=== PATIENT | female | born 1995 | race Caucasian/White ===

== ENCOUNTER 2016-04-07 08:53 | Emergency (ER) | payer OTHER ==
[2016-04-07 09:49] LABS: BASOPHILS 0.4 % (0.0-2.0); EOSINOPHILS 7.1 % (0.0-6.0); EOSINOPHILS# 0.5 X 10^3uL (0.0-0.4); HEMATOCRIT 38.6 % (36.0-48.0); HEMOGLOBIN 13.2 g/dL (12.0-16.0); LYMPHOCYTES 25.6 % (20.0-40.0); LYMPHOCYTES# 1.8 X 10^3uL (0.8-3.8); MEAN CELL VOLUME 85.7 fL (84.0-102.0); MEAN CORPUS. HGB CONCENTRATION 34.1 g/dL (32.0-36.0); MEAN CORPUSCULAR HEMOGLOBIN 29.2 pg (29.0-35.0); MEAN PLATELET VOLUME 8.4 fL (7.4-10.4); MONOCYTES# 0.4 X 10^3uL (0.2-1.0); NEUTROPHILS 60.9 % (54.0-75.0); NEUTROPHILS# 4.4 X 10^3uL (2.6-6.7); PLATELET COUNT 309 X 10^3uL (130-440); RED CELL DISTRIBUTION WIDTH 12.3 % (11.5-14.5); WHITE BLOOD COUNT 7.1 X 10^3uL (3.9-10.7)
[2016-04-07 09:57] LABS: A/G RATIO 1.2; ALKALINE PHOSPHATASE 100 U/L (38-126); ALT 44 U/L (9-52); AST 26 U/L (14-36); BILIRUBIN, TOTAL 0.5 mg/dL (0.2-1.3); BLOOD UREA NITROGEN 11 mg/dL (7-17); CALCIUM 8.8 mg/dL (8.4-10.2); CHLORIDE 107 mmol/L (98-107); CREATININE 0.7 mg/dL (0.5-1.0); EST GLOMERULAR FILTRATION RATE > 60 mL/min; GLUCOSE 122 mg/dL (70-100); LIPASE 114 U/L (23-300); POTASSIUM 3.7 mmol/L (3.5-5.1); SODIUM 141 mmol/L (137-145); TOTAL PROTEIN 7.3 g/dL (6.3-8.2); URIC ACID 4.7 mg/dL (2.5-6.2)
[2016-04-07] MEDS ORDERED: KETOROLAC TROMETHAMINE 30 MG/ML VIAL ONE (09:57)
[2016-04-07] MEDS ORDERED: ONDANSETRON HCL 4 MG/2 ML VIAL ONE (09:57)
[2016-04-07 10:55] LABS: URINE MUCUS NONE SEEN (Up to 25%)
--- NOTE | 2016-04-07 10:59 | ER NURSING DOCUMENTATION ---
Nurse's Notes [facility] Name:Aurora Reagan Age:20 yrs Sex:Female :1995 Arrival Date:04/07/2016 Time:08:53 Bed3 Private MD: Diagnosis:Renal Colic Presentation: 04/07 09:01 Acuity: JOSE 3 cb 09:09 Presenting complaint: Patient states: bilateral upper abdominal pain radiating to back lpr since yesterday. Hx of kidney stones with lithotripsy one year ago. Dark urine. Transition of care: patient was not received from another setting of care. 09:09 Method Of Arrival: Walk In lpr Triage Assessment: 09:12 General: Appears uncomfortable, Behavior is cooperative. Pain: Complains of pain in mid lpr back area, right upper quadrant and left upper quadrant. EENT: Oral mucosa is moist. Neuro: Level of Consciousness is awake, alert, obeys commands, Oriented to person, place, time, event. Cardiovascular: No deficits noted. Respiratory: Airway is patent Respiratory effort is even, unlabored, Respiratory pattern is regular, symmetrical. GI: Reports Pain is 8 out of 10 on a pain scale. : Reports darkurine. Derm: Skin is intact, is healthy with good turgor, Skin is pink, warm & dry. Musculoskeletal: Circulation, motion, and sensation intact Capillary refill < 3 seconds. 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 citalopram oral 2. unknown med for bipolar type II - PMHx: kidney stones one year ago; ANXIETY; bipolar type II; - PSHx: LITHOTRIPSY; CHOLECYSECTOMY; - Tetanus: < 10 years. - Ebola Screening: : Patient negative for fever greater than or equal to 101.5 degrees Fahrenheit, and additional compatible Ebola Virus Disease symptoms. Patient denies exposure to infectious person. Patient denies travel to an Ebola-affected area in the 21 days before illness onset. No symptoms or risks identified at this time. . - Immunization history: Flu Vaccine >1 year. - Social history: Smoking status: Patient states was never smoker of tobacco. Screenin:14 Infectious Disease Risk None. Abuse screen: Denies threats or abuse. Nutritional lpr screening: No deficits noted. Assessment: 09:14 See Triage Assessment done by same RN. lpr 10:56 Reassessment: Patient states feeling better. Patient states symptoms have improved. ma Patient appears in no apparent distress at this time. Vital Signs: 09:13 BP 119 / 71; Pulse 95; Resp 16; Temp 98.6(O); Pulse Ox 96% on R/A; Weight 91.17 kg (R); lpr Height 5 ft. 6 in. (167.64 cm); Pain 8/10; 10:49 BP 113 / 67; Pulse 74; Resp 16; Pulse Ox 92% ; ma 09:13 Body Mass Index 32.44 (91.17 kg, 167.64 cm) lpr ED Course: 08:53 Patient arrived in ED. ds 09:01 Morena Tsang, LEXI is Primary Nurse. cb 09:01 Triage completed. cb 09:12 Vitor Julio MD is Attending Physician. tl1 09:14 Valuables Remains with patient Patient has correct armband on for positive lpr identification. Placed in gown. Bed in low position. Call light in reach. Side rails up X 1. 09:15 Inserted saline lock: 20 gauge in right hand and blood collected. by LUIS Herring. lpr Administered Medications: 09:53 Drug: Toradol 15 mg; Route: IVP; Site: right hand; lpr 10:51 Follow up: Response: Pain is decreased ma 09:53 Drug: Zofran 4 mg; Route: IVP; Infused Over: 2 mins; Site: right hand; lpr 10:51 Follow up: Response: Nausea is decreased ma 10:51 CANCELLED (Physician Discretion): Dilaudid 0.5 mg IVP once tx Point of Care Testing: Urine Dip: 09:44 pH: 6.5; ; Specific [place]: 1.015; Ketones: Negative; Glucose: Negative; Protein: lpr Negative; Leukocytes: Trace; Nitrite: Negative ; Blood: Negative; Bilirubin: Negative ; Urobilinogen: Normal Outcome: 10:27 Discharge ordered by . tl1 10:56 Discharged to home ma 10:56 Condition: stable 10:56 Discharge instructions given to patient, Instructed on discharge instructions, follow up and referral plans. medication usage, Demonstrated understanding of instructions, medications, Prescriptions given X 3. 10:58 Patient left the ED. ma 04/08 11:09 Discharge F/U Call: Spoke with: patient. Overall Care on a scale of 1-[address] being the best care, you rate our care as: Other comments: pt states she is still hurting but she is taking her pain meds and is doing OK. What is the one thing you feel we could do to improve? Signatures: Morena Tsang, RN RN Nicole Jamison RN Alpa Sue, RN LEXI Banks, Monique, Reg Reg Mami Hernandez RN RN lpr Leigh, Tom, MD MD tl1
--- NOTE | 2016-04-07 10:59 | ER PHYSICIAN DOCUMENTATION ---
Physician Documentation [facility] Name:Aurora Reagan Age:20 yrs Sex:Female :1995 Arrival Date:04/07/2016 Time:08:53 Bed3 Private MD: Vitor Cleveland Disposition: 04/07 15:25 Chart complete. tl1 Disposition: 04/07/16 10:27 Discharged to Home/Self Care. Impression: Renal Colic. - Condition is Good. - Prescriptions for [place] 7.5- 325 mg Oral Tablet - take 1 tablet by ORAL route every 6 hours As needed; 20 tablet. Flomax 0.4 mg Oral - take 1 capsule by ORAL route as needed As needed 1/2 hour following the same meal each day; 10 capsule. Zofran 4 mg Oral Tablet - take 1-2 tablet by ORAL route every 4-6 hours As needed; 10 tablet. - Medical Reconciliation form form. - Follow up: Private Physician; When: 4- 6 days; Reason: Recheck today's complaints, Continuance of care. - Problem is an acute exacerbation. - Symptoms have improved. - Notes: Until the pain stops, Aleve, 2-3 tabs a day, may help with your pain. HPI: 09:12 This 20 yrs old Female presents to ER via Walk In with complaints of tl1 Abdominal Pain. 09:12 She had two ureteral stones on the right about a year ago, treated with lithotripsy. tl1 Since then she has done well. Yesterday, at about 3 pm , she had the abrupt onset of left flank and epigastric pain that was similar in some respects to her renal colic a year ago. She has been nauseated and vomited once yesterday. No f/c/s. No hematuria. Maybe some mild dysuria. No change in bowel habits. She is s/p cholecystectomy.. 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 citalopram oral 2. unknown med for bipolar type II - PMHx: kidney stones one year ago; ANXIETY; bipolar type II; - PSHx: LITHOTRIPSY; CHOLECYSECTOMY; - Tetanus: < 10 years. - Ebola Screening: : Patient negative for fever greater than or equal to 101.5 degrees Fahrenheit, and additional compatible Ebola Virus Disease symptoms. Patient denies exposure to infectious person. Patient denies travel to an Ebola-affected area in the 21 days before illness onset. No symptoms or risks identified at this time. . - Immunization history: Flu Vaccine >1 year. - Social history: Smoking status: Patient states was never smoker of tobacco. ROS: 09:12 Abdomen/GI: Positive for abdominal pain, nausea, vomiting, Negative for diarrhea, tl1 constipation, anorexia, hematemesis, black/tarry stool, rectal bleeding. 09:12 : Positive for burning with urination, Negative for hematuria. 09:12 All other systems are negative. Exam: 09:12 Head/Face: Normocephalic, atraumatic. tl1 09:12 Constitutional: The patient appears alert, awake, well developed, well hydrated, well groomed, well nourished, in obvious distress, in obvious pain, restless, uncomfortable. 09:12 Eyes: Exam is negative for acute changes. 09:12 Neck: Exam negative for acute changes. 09:12 Chest/axilla: Exam negative for acute changes. 09:12 Cardiovascular: Rate: normal, Rhythm: regular, Heart sounds: normal, Edema: is not appreciated. 09:12 Respiratory: the patient does not display signs of respiratory distress, Respirations: normal. 09:12 Abdomen/GI: Inspection: abdomen appears normal, Bowel sounds: normal, Palpation: soft, mild abdominal tenderness, right epigastrium. She has moderate, bilateral, left more than right CVAT., mass, is not appreciated, rebound tenderness, is not appreciated, voluntary guarding, is not appreciated, no appreciated organomegaly. 09:12 : Bladder: tenderness, is not appreciated. 09:12 Musculoskeletal/extremity: Exam is negative for acute changes. 09:12 Skin: Exam negative for acute changes. 09:12 Neuro: Exam negative for acute changes. Vital Signs: 09:13 BP 119 / 71; Pulse 95; Resp 16; Temp 98.6(O); Pulse Ox 96% on R/A; Weight 91.17 kg (R); lpr Height 5 ft. 6 in. (167.64 cm); Pain 8/10; 10:49 BP 113 / 67; Pulse 74; Resp 16; Pulse Ox 92% ; ma 09:13 Body Mass Index 32.44 (91.17 kg, 167.64 cm) lpr MDM: 09:12 Patient medically screened. tl1 11:00 Differential diagnosis: diverticulitis, Ectopic , Endometriosis, Herpes tl1 Zoster, Irritable bowel syndrome, non-specific abd pain, Ovarian Torsion, pancreatitis, Perf. Duodenal Ulcer, Perf. Gastric Ulcer, Pyelonephritis, Tubal Ovarian Abcess, Ureterolithiasis, urinary tract infection. Data reviewed: vital signs, nurses notes, and as a result, I will discharge patient. Counseling: I had a detailed discussion with the patient and/or guardian regarding: the historical points, exam findings, and any diagnostic results supporting the discharge/admit diagnosis, lab results, the need for outpatient follow up, to return to the emergency department if symptoms worsen or persist or if there are any questions or concerns that arise at home. Special discussion: I asked her to stain her urine and save any stones or gravel for analysis in the lab. She should f/u with her PCP after she returns home.. ED course: Pain somewhat controlled by Toradol. After some discussion of the risks and benefits of CT vs plain films of the abdomen, we decided to not do any imaging, based on her normal labs and similarity of this pain to prior renal colic. She understands this may not be renal colic and that she needs to return for any worsening of her symptoms. She will be in EP for the next 3 days and can return if needed.. 04/07 09:53 Order name: CBC AUTO DIF, MDIF/RMOR IF IND; Complete Time: 10: EDMS 04/07 10:15 Interpretation: Normal Except: EOSINOPHILS 7.1. 04/07 09:59 Order name: COMPREHENSIVE METABOLIC PANEL; Complete Time: 10: EDMS 04/07 10:15 Interpretation: Normal. 04/07 09:59 Order name: URIC ACID; Complete Time: 10:26 EDMS 04/07 10:15 Interpretation: Normal: URIC ACID 4.7. 04/07 09:59 Order name: LIPASE; Complete Time: 10: EDMS 04/07 10:18 Interpretation: Normal: LIPASE 114. 04/07 10:09 Order name: HCG, SERUM; Complete Time: 10: EDMS 04/07 09:40 Order name: Urine Dip; Complete Time: 09:46 cb Dispensed Medications: 09:53 Drug: Toradol 15 mg; Route: IVP; Site: right hand; lpr 10:51 Follow up: Response: Pain is decreased ma 09:53 Drug: Zofran 4 mg; Route: IVP; Infused Over: 2 mins; Site: right hand; lpr 10:51 Follow up: Response: Nausea is decreased ma 10:51 CANCELLED (Physician Discretion): Dilaudid 0.5 mg IVP once ma Point of Care Testing: Urine Dip: 09:44 pH: 6.5; ; Specific [place]: 1.015; Ketones: Negative; Glucose: Negative; Protein: lpr Negative; Leukocytes: Trace; Nitrite: Negative ; Blood: Negative; Bilirubin: Negative ; Urobilinogen: Normal Signatures: Morena Tsang, LEXI RN cb Alpa Donohue RN RN ma Roberts, Leslie, RN RN lpr Leigh, Tom, MD MD tl1
[2016-04-07 11:36] LABS: URINE APPEARANCE CLEAR; URINE COLOR YELLOW; URINE NITRITE NEGATIVE (NEGATIVE)
[2016-04-07 11:37] LABS: URINE BILIRUBIN NEGATIVE (NEGATIVE); URINE BLOOD TRACE (NEGATIVE); URINE GLUCOSE NORMAL (NEGATIVE); URINE KETONE NEGATIVE (NEGATIVE); URINE PH 5.5 (5-7); URINE PROTEIN NEGATIVE (NEG - TRACE); URINE RBC 0-5/hpf (0-5/hpf); URINE UROBILINOGEN NORMAL (NEG-1mg/dL)
[2016-04-07 13:26] LABS: URINE LEUKOCYTE ESTERASE 25 WBC/uL (1+) (NEGATIVE)
== END 2016-04-07 10:58 | disposition home or self-care (01) ==
LOC: ER 08:53
DX: N23 Unspecified renal colic (principal); R30.0 Dysuria; R11.2 Nausea with vomiting, unspecified; R10.13 Epigastric pain; M54.5 Low back pain; Z87.442 Personal history of urinary calculi
CPT/HCPCS: 80053; 81001; 83690; 84550; 84703; 85025; 96374; 96375; 99284; J1885; J2405